=== PATIENT | female | born 1955 | race Caucasian/White ===

== ENCOUNTER → 2023-09-01 10:04 | Outpatient (REF) | payer MEDICARE, OTHER, SELFPAY | LOC: RCS 10:04 | PROVIDERS: ATTENDING PHYSICIAN Family Medicine | DX: R00.2 Palpitations (principal) | CPT/HCPCS: 93225; 93226 ==

== ENCOUNTER 2023-11-14 01:21 | Emergency (ER) | payer MEDICARE, OTHER, SELFPAY ==
[2023-11-14 01:32] VITALS: BP 178/98
--- NOTE | 2023-11-14 02:00 | ED.GENMED ---
History of Present Illness
<ATUL Koenig - Last Filed: 11/14/23 05:44>
General
Chief Complaint: Chest Pain
Time Seen by Provider: 11/14/23 01:44
Travel History
Have you had any contact with someone who has COVID-19?: No
Do you have any symptoms of coronavirus? Fever > 100 degrees, chills, cough, shortness of breath, sore throat, loss of taste or smell, muscle aches, or headache?: No
History of Present Illness
History of Present Illness:
This is a 68 YO F with a PMH of HLD, frequent palpitations since Jul, hypothyroidism, and cardiac catheter x 2 years ago that presents here today for intermittent chest pain x 10 days. Pt complains of dull pain with intermittent radiation to
the left axilla without radiation to the jaw or shoulder. She states she was lightheaded and dizzy earlier this evening and fell. She did not hit her head or lose consciousness. She complained earlier of SOB and nausea. She is not complaining of SOB
at the moment.
Past History
<ATUL Koenig - Last Filed: 11/14/23 05:44>
Past History
ED Past Medical History: HTN, Hypercholesterolemia, Hypothyroidism and Other
ED Past Surgical History: Gynecological (Ectopic ) and Orthopedic
Social History
Tobacco: Non-smoker
Alcohol: None
Personal:
Living: with family
Employment: Employed
Family History
Family History: Other (Noncontributory)
Review of Systems
<ATUL Koenig - Last Filed: 11/14/23 05:44>
Review of Systems
Constitutional: Reports no symptoms
EENT: Reports no symptoms
Cardiac: Reports chest pain
ABD/GI: Reports no symptoms
: Reports no symptoms
Musculoskeletal: Reports no symptoms
Phy Exam
<Chelle Frazier [facility] - Last Filed: 11/14/23 05:44>
Physical Exam
Physical Exam:
Normal S1 and S2, Breath sounds equal B/L
General Physical Exam
General Presentation: well appearing
General age: appears stated age
General Habitus: normal
General Mental: alert
General Hydration: appears well hydrated
Cardiovascular Exam
Cardiovascular Exam: regular rate/rhythm
Pulmonary Exam
Pulmonary Exam: lungs clear
Scores
<Chelle Frazier [facility] - Last Filed: 11/14/23 05:44>
Heart Score for Chest Pain Patients
Heart Score for Chest Pain Patients: 2
Heart Score Risk: 2.5% MACE over next 6 weeks
<Demarcus Aguiar DO - Last Filed: 11/14/23 05:02>
Heart Score for Chest Pain Patients
STEMI patient?: Not applicable
History: Slightly or Non-Suspicious
ECG: Normal
Age: >45 - <65 years
Risk Factors: 1 or 2 Risk Factors
Troponin: </= Normal Limit
Heart Score for Chest Pain Patients: 2
Heart Score Risk: 2.5% MACE over next 6 weeks
Course
<Chelle Frazier [facility] - Last Filed: 11/14/23 05:44>
Orders/Labs/Results
Orders:
Orders
11/14/23 01:25
EKG [Electrocardiogram (*1)] Urgent
Reason for Study: Chest Pain
EKG- Treatment ONCE
11/14/23 02:04
Cardiac Monitoring- Treatment ONCE
11/14/23 02:21
Complete Blood Count/With Diff Urgent
11/14/23 02:22
Comprehensive Metabolic Panel Urgent
PTT Urgent
Prothrombin Time Urgent
TSH Urgent
11/14/23 02:23
Troponin I Urgent
11/14/23 04:46
CR Chest - 2 Views Urgent
Comment:
Reason For Exam: cp
Abnormal Lab Results
11/14/23 11/14/23
02:21 02:22
RBC 3.95 L 10^6/uL
(4.20-5.40)
Hct 36.4 L %
(37.0-47.0)
MCH 31.1 H pg
(27.0-31.0)
MPV 10.9 H fL
(7.4-10.4)
Neutrophils % 32.9 L %
(42.2-75.2)
Lymphocytes % 51.9 H %
(20.5-51.1)
Monocytes % 10.7 H %
(1.7-9.3)
BUN 22 H mg/dl
(7-17)
Glucose 107 H mg/dl
(70-99)
AST 46 H U/L
(14-36)
TSH 5.25 H uIU/ml
(0.47-4.68)
11/14/23 02:21
11/14/23 02:22
Vital Signs
Initial and Last Documented VS:
Initial Vital Signs
Temp Pulse Resp BP Pulse Ox
97.7 F 74 16 178/98 100
11/14/23 01:32 11/14/23 01:32 11/14/23 01:32 11/14/23 01:32 11/14/23 01:32
Last Documented Vital Signs
Temp Pulse Resp BP Pulse Ox
97.7 F 51 14 148/80 100
11/14/23 01:32 11/14/23 04:00 11/14/23 04:00 11/14/23 04:00 11/14/23 03:32
<Demarcus Aguiar DO - Last Filed: 11/14/23 05:02>
Orders/Labs/Results
Orders:
Orders
11/14/23 01:25
EKG [Electrocardiogram (*1)] Urgent
Reason for Study: Chest Pain
EKG- Treatment ONCE
11/14/23 02:04
Cardiac Monitoring- Treatment ONCE
11/14/23 02:21
Complete Blood Count/With Diff Urgent
11/14/23 02:22
Comprehensive Metabolic Panel Urgent
PTT Urgent
Prothrombin Time Urgent
TSH Urgent
11/14/23 02:23
Troponin I Urgent
11/14/23 04:46
CR Chest - 2 Views Urgent
Comment:
Reason For Exam: cp
Abnormal Lab Results
11/14/23 11/14/23
02:21 02:22
RBC 3.95 L 10^6/uL
(4.20-5.40)
Hct 36.4 L %
(37.0-47.0)
MCH 31.1 H pg
(27.0-31.0)
MPV 10.9 H fL
(7.4-10.4)
Neutrophils % 32.9 L %
(42.2-75.2)
Lymphocytes % 51.9 H %
(20.5-51.1)
Monocytes % 10.7 H %
(1.7-9.3)
BUN 22 H mg/dl
(7-17)
Glucose 107 H mg/dl
(70-99)
AST 46 H U/L
(14-36)
TSH 5.25 H uIU/ml
(0.47-4.68)
11/14/23 02:21
11/14/23 02:22
Vital Signs
Initial and Last Documented VS:
Initial Vital Signs
Temp Pulse Resp BP Pulse Ox
97.7 F 74 16 178/98 100
11/14/23 01:32 11/14/23 01:32 11/14/23 01:32 11/14/23 01:32 11/14/23 01:32
Last Documented Vital Signs
Temp Pulse Resp BP Pulse Ox
97.7 F 51 14 148/80 100
11/14/23 01:32 11/14/23 04:00 11/14/23 04:00 11/14/23 04:00 11/14/23 03:32
<ATUL Koenig - Last Filed: 11/14/23 05:44>
MDM/Problems Addressed
Differential Diagnosis Includes:
STEMI vs NSTEMI, Unstable vs stable angina, DVT, PE, costochondritis,
<ATUL Koenig - Last Filed: 11/14/23 05:44>
*Critical Care Note
Total Time (30-74mins, 75-104mins- exclusive of procedures): Not Applicable
<Demarcus Agiuar DO - Last Filed: 11/14/23 05:02>
Update Note
Update Note:
X-ray looks normal. Patient does have a follow-up with [facility] on the .
ED Attending Note
<ATUL Koenig - Last Filed: 11/14/23 05:44>
-
Portions of this chart may have been created with voice recognition software.� Occasional wrong word or��sound alike� substitutions may have occurred due to the inherent limitations of voice recognition software.
<Demarcus Aguiar DO - Last Filed: 11/14/23 05:02>
ED Attending Note
Patient seen and examined by attending physician: Yes
I performed the substantive portion of visit, reviewed & personally made and approve the management plan that is documented in note by myself or FLAKO.: Yes
ED Attending Note:
This a pleasant 68-year-old female who presents with substernal chest pain that has been intermittent in nature for the last 10 years. She states that the pain is dull. Occasionally radiates into the left axilla. She reports being lightheaded and
dizzy this morning prior to arrival. States that she has had similar symptoms several times in the past. She has had a cardiac catheterization. She had been seen in the [facility] emergency department for palpitations in the past. She was not
wearing a Holter monitor. Denies fever, chills, nausea or vomiting. Patient was seen in conjunction with the PA student. I have reviewed and agree with the history and treatment plan presented. On my independent physical exam, patient is awake,
alert, and oriented x3, minimal acute distress at time of exam. Heart is regular rate and rhythm. Lungs are clear to auscultation bilaterally without wheezes rales or rhonchi present. Abdomen is soft nondistended. There are hyperactive bowel
sounds. Skin is warm and dry. Distal pulses are present.
Discharge Plan
Departure
Patient Disposition: Home (Routine Discharge)
Date of Disposition: 11/14/23
Time of Disposition: 04:47
Patient with high blood pressure during this ER visit?: Yes
Condition: Good
Discharge Problem:
Chest pain
Instructions: Chest Pain CBC Follow Up
Prescriptions:
No Action
multivitamin 1 EACH tablet
1 ea PO Daily
levothyroxine [Synthroid] 50 MCG tablet
50 mcg PO Daily
metoprolol succinate 12.5 MG tablet extended release 24 hr
12.5 mg PO Daily
Layla
1 tab PO DAILY
Patient Comments:
pt does not know mg
calcium 500 mg Tablet
500 mg PO DAILY
escitalopram oxalate 10 mg Tablet
10 mg PO DAILY
rosuvastatin 10 mg Tablet
10 mg PO MOWEFR
cholecalciferol (vitamin D3) [Vitamin D3] 125 mcg (5,000 unit) Tablet
125 mcg PO DAILY
CoQ-10
1 cap PO DAILY
Patient Comments:
pt does not know mg
Referrals:
Kiana Machado MD [Family Provider] -
Activity Restrictions/Additional Instructions:
It was a pleasure meeting you and taking part in your care. We hope for your continued healing and wellness.
Please read discharge instructions in their entirety. However, they are for general education and may not describe your exact diagnosis at discharge. Information on your ER visit and medical conditions were discussed with you along with appropriate
follow up information...
If indicated, please take your medications as instructed and indicated on discharge paperwork.
Please schedule a follow up appointment as directed. Call to schedule an appointment
Please return to the emergency department with ANY change in, persisting, or worsening of symptoms. If any of your symptoms do not improve, or persist, or become more severe within 6-12 hours, please return to the emergency department for further
care.
Please return to the emergency department if you develop a headache, neck pain/stiffness, fever greater than 100.4F, chest pain, shortness of breath, persistent nausea, vomiting, slurred speech, difficulty walking, numbness/tingling, weakness, signs
of infection or any other symptoms that are worrisome to you.
If you have any questions or concerns please do not hesitate to call the Hospital at or E-mail me directly at [email or web address]
Interventions
Interventions:
*Risk Screen - Suicide Last Done: 11/14/23 02:17
*General Assessment Last Done: 11/14/23 02:17
*Neglect/Abuse Screening Last Done: 11/14/23 02:17
ED- Fall Risk Assessment Last Done: 11/14/23 02:36
*ED COVID-19 Vaccine History Last Done: 11/14/23 02:17
*Nursing Disposition Last Done: 11/14/23 05:08
ED- Cardiac Assessment Last Done: 11/14/23 03:35
Discharge Date and Time
Discharge Date/Time: 11/14/23 05:08
Print Language: ESTONIAN
[2023-11-14 02:12] VITALS: BP 172/91
[2023-11-14 02:24] VITALS: BP 164/81
[2023-11-14 02:32] LABS: % Basophils 0.4 % (0-2); % Eosinophils 3.9 % (0-6); % Immature Granulocytes 0.2 % (0-0.5); % Lymphocytes 51.9 % (20.5-51.1); % Monocytes 10.7 % (1.7-9.3); % Neutrophils 32.9 % (42.2-75.2); Absolute Eosinophils 0.2 10^3/uL (0-0.7); Absolute Lymphocytes 2.8 10^3/uL (1.2-3.4); Absolute Monocytes 0.6 10^3/uL (0.1-0.6); Absolute Neutrophils 1.8 10^3/uL (1.4-6.5); Hematocrit 36.4 % (37.0-47.0); Hemoglobin 12.3 g/dL (12.0-16.0); Mean Corp Hgb Conc. 33.8 g/dL (33.0-37.0); Mean Corpuscular Hgb 31.1 pg (27.0-31.0); Mean Corpuscular Volume 92.2 fL (81.0-99.0); Mean Platelet Volume 10.9 fL (7.4-10.4); Nucleated Red Blood Cells % 0 %; Platelet Count 160 10^3/uL (130-400); Red Blood Cell Count 3.95 10^6/uL (4.20-5.40); Red Cell Dist. Width 12.3 % (11.5-14.5); White Blood Cell Count 5.4 10^3/uL (4.8-10.8)
[2023-11-14 02:46] LABS: INR 0.95; PT 12.7 Sec (11.4-14.6)
[2023-11-14 02:47] LABS: APTT 28.3 Sec (23.4-35.0)
[2023-11-14 02:49] LABS: ALT (SGPT) 22 U/L (0-35); AST (SGOT) 46 U/L (14-36); Albumin 4.3 g/dl (3.5-5.0); Alkaline Phosphatase 96 U/L (38-126); Blood Urea Nitrogen 22 mg/dl (7-17); Calcium 9.6 mg/dl (8.4-10.2); Carbon Dioxide 24 mmol/L (22-30); Chloride 107 mmol/L (98-107); Glucose 107 mg/dl (70-99); Potassium 4.4 mmol/L (3.5-5.1); Sodium 139 mmol/L (135-145); Total Bilirubin 0.5 mg/dl (0.2-1.3); Total Protein 7.4 g/dl (6.3-8.2); eGFR > 60.00
[2023-11-14 02:58] LABS: Troponin I < 0.012 ng/ml
[2023-11-14 03:19] LABS: TSH 5.25 uIU/ml (0.47-4.68)
[2023-11-14 03:32] VITALS: BP 151/82
--- NOTE | 2023-11-14 03:38 | EDRN ---
Pt with intermittent L side chest pain x 10 days. Pt felt fine yesterday morning but around 1600, pt felt tired and laid down for 30 minutes. When pt got up, she did not feel any better. Pt 'wasn't too bad' when she went to bed last night around
[id number]. Pt woke with palpitations, dizziness, mouth dryness and nausea which prompted her to come to the ED for evaluation. Pt says 'I still feel vertigo-yusef.' No chest pain, sob, abd pain, vomiting, fever/chills/cough, urinary symptoms,
weakness.
[2023-11-14 04:00] VITALS: BP 148/80
== END 2023-11-14 05:08 | disposition home or self-care (01) ==
LOC: EMR 01:21
PROVIDERS: EMERGENCY PHYSICIAN Student in an Organized Health Care Education/Training Program; FAMILY PHYSICIAN Family Medicine
DX: R07.89 Other chest pain (principal); I10 Essential (primary) hypertension; E03.9 Hypothyroidism, unspecified; E78.00 Pure hypercholesterolemia, unspecified; W19.XXXA Unspecified fall, initial encounter
CPT/HCPCS: 99285; 71046; 80053; 84443; 84484; 85025; 85610; 85730; 93005

== ENCOUNTER → 2023-12-11 14:53 | Outpatient (REF) | payer MEDICARE, OTHER, SELFPAY | LOC: HWRCS 14:53 | PROVIDERS: ATTENDING PHYSICIAN Internal Medicine Cardiovascular Disease; FAMILY PHYSICIAN Family Medicine | DX: R00.2 Palpitations (principal) | CPT/HCPCS: 93306 ==

== ENCOUNTER → 2024-03-17 12:49 | Outpatient (REF) | payer MEDICARE, OTHER, SELFPAY | LOC: HWWDC 12:49 | PROVIDERS: ATTENDING PHYSICIAN Internal Medicine | DX: Z12.31 Encounter for screening mammogram for malignant neoplasm of breast (principal) | CPT/HCPCS: 77063; 77067 ==

== ENCOUNTER → 2024-12-30 11:59 | Outpatient (REF) | payer MEDICARE, OTHER, SELFPAY | LOC: MRI 3T 11:59 | PROVIDERS: ATTENDING PHYSICIAN Internal Medicine | DX: R26.89 Other abnormalities of gait and mobility (principal) | CPT/HCPCS: 70553; A9575 ==

== ENCOUNTER → 2025-01-27 16:36 | Outpatient (REF) | payer MEDICARE, OTHER, SELFPAY | LOC: RAD 16:36 | PROVIDERS: ATTENDING PHYSICIAN Internal Medicine | DX: M54.6 Pain in thoracic spine (principal); R07.81 Pleurodynia | CPT/HCPCS: 71101; 72072 ==